=== PATIENT | male | born 1970 | race Caucasian/White ===

== ENCOUNTER 2018-06-11 10:02 | Emergency (ER) | payer BC ==
[2018-06-11] MEDS ORDERED: Labetalol IV* 5 MG/ML 20 ML VIAL IV PUSH ONE (10:24)
[2018-06-11] MEDS ORDERED: niCARdipine CAP* 30 MG PO ONE (10:33)
[2018-06-11 11:08] LABS: ABS Basophils 0.1 10^3/ul (0-0.2); ABS Eosinophils 0.1 10^3/ul (0-0.6); ABS Lymphocytes 1.5 10^3/ul (1.0-4.8); ABS Monocytes 0.4 10^3/ul (0-0.8); ABS Neutrophils 3.5 10^3/ul (1.5-7.7); ABS Nucleated RBC 0 10^3/ul; Eosinophil % 1.6 %; Hematocrit 43 % (42-52); Hemoglobin 14.4 g/dl (14.0-18.0); Lymphocyte % 27.4 %; Mean Corpuscular HGB Conc 33 g/dl (31-36); Mean Corpuscular Hemoglobin 29 pg (27-31); Mean Corpuscular Volume 88 fL (80-94); Mean Platelet Volume 8.4 fL (7.4-10.4); Nucleated Red Blood Cells % 0.1; Platelet Count 240 10^3/ul (150-450); Red Blood Count 4.92 10^6/ul (4.00-5.40); Red Cell Distribution Width 14 % (10.5-15); White Blood Count 5.5 10^3/ul (3.5-10.8)
[2018-06-11 11:19] LABS: INR 0.9 (0.77-1.02)
[2018-06-11 11:29] LABS: Albumin 4.1 g/dL (3.2-5.2); Albumin/Globulin Ratio 1.7 (1-3); BUN/Creatinine Ratio 16.9 (8-20); Calcium 9.2 mg/dL (8.6-10.3); EGFR Non-African American 99.3 (>60); Globulin 2.4 g/dL (2-4); Potassium 4.7 mmol/L (3.5-5.0); Total Bilirubin 0.5 mg/dL (0.2-1.0); Total Protein 6.5 g/dL (6.4-8.9)
[2018-06-11 11:52] LABS: Erythrocyte Sed Rate 5 mm/Hr (0-14)
--- NOTE | 2018-06-11 12:23 | ED ---
Headache - HPI Summary HPI Summary: Patient is a 47-year-old male presenting to the ED with severe acute onset headache with erection 3 over the past 5 days. He states the headache has lasted between 2-6 hours and resolved spontaneously except for the headache from this morning which is lingering. He states the acute onset of the headache was this morning, rated 8/10, severe, sharp in the occipital area and is currently a 2/10. He did not try any medications for relief today, however yesterday had tried Tylenol and ibuprofen without relief. He states he has never had this issue before and denies any history of hypertension. He does have history of migraines with aura, but takes no medications for this. He states this is different than his previous migraines as it is located in the occipital region. He denies any others symptoms including fevers, sweats, chills, visual changes, confusion, cold symptoms, abdominal pain, nausea, vomiting. - History Of Current Complaint Chief Complaint: EDHeadache Stated Complaint: HEADACHE, Time Seen by Provider: 06/11/18 10:14 Hx Obtained From: Patient Onset/Duration: Sudden Onset Initially Headache Was: Initial Pain Scale(0-10)= - 8 Currently Pain Is: Current Pain Scale(0-10)= - 2 Timing: Intermittent, Lasting:, Hours Character: Pressure Location of Headache: Occipital Aggravating Factor: Nothing Allevating Factors: Nothing - Risk Factors SAH Risk Factors: Negative Meningitis Risk Factors: Negative SDH Risk Factors: Negative Temporal Arteritis Risk Factors: Negative - Allergies/Home Medications Allergies/Adverse Reactions: Allergies Allergy/AdvReac Type Severity Reaction Status Date / Time No Known Allergies Allergy Verified 06/11/18 10:04 PMH/Surg Hx/FS Hx/Imm Hx Previously Healthy: Yes Sensory History: Denies: Hx Contacts or Glasses Opthamlomology History: Denies: Hx Contacts or Glasses - Immunization History Hx Pertussis Vaccination: No Immunizations Up to Date: Yes Infectious Disease History: No Infectious Disease History: Denies: Traveled Outside the [place] in Last 30 Days - Family History Known Family History: Negative: Hypertension, Diabetes Family History: No FHx of detached retina - Social History Occupation: Employed Full-time Lives: With Family Alcohol Use: None Hx Substance Use: Yes Substance Use Type: Reports: Marijuana Substance Use Comment - Amount & Last Used: 2-3 times a week Hx Tobacco Use: Yes Smoking Status (MU): Former Smoker Review of Systems Negative: Fever, Chills, Fatigue, Skin Diaphoresis Negative: Epistaxis, Dental Pain Negative: Palpitations, Chest Pain Negative: Shortness Of Breath, Cough Genitourinary: Negative Positive: no symptoms reported, see HPI Negative: Arthralgia, Myalgia Skin: Negative Positive: Headache All Other Systems Reviewed And Are Negative: Yes Physical Exam Triage Information Reviewed: Yes Vital Signs On Initial Exam: Initial Vitals Temp Pulse Resp BP Pulse Ox 96.9 F 80 16 170/115 96 06/11/18 10:04 06/11/18 10:04 06/11/18 10:04 06/11/18 10:04 06/11/18 10:04 Vital Signs Reviewed: Yes Appearance: Positive: Well-Appearing, Well-Nourished Skin: Positive: Warm, Skin Color Reflects Adequate Perfusion Head/Face: Positive: Normal Head/Face Inspection Eyes: Positive: EOMI, CAROLIN, Conjunctiva Clear Neck: Positive: No Lymphadenopathy Respiratory/Lung Sounds: Positive: Clear to Auscultation, Breath Sounds Present Cardiovascular: Positive: RRR, Pulses are Symmetrical in both Upper and Lower Extremities Musculoskeletal: Positive: Normal, Strength/ROM Intact Neurological: Positive: Sensory/Motor Intact, Alert, Oriented to Person Place, Time, CN Intact II-III, Reflexes Intact, Normal Gait, Speech Normal Psychiatric: Positive: Normal AVPU Assessment: Alert - Rosy Coma Scale Best Eye Response: 4 - Spontaneous Best Motor Response: 6 - Obeys Commands Best Verbal Response: 5 - Oriented Coma Scale Total: 15 Diagnostics - Vital Signs Vital Signs Temp Pulse Resp BP Pulse Ox 06/11/18 11:47 78 147/93 96 06/11/18 11:45 71 145/90 96 06/11/18 11:18 138/87 06/11/18 11:00 64 97 06/11/18 10:53 69 158/101 98 06/11/18 10:18 86 196/131 99 06/11/18 10:17 86 100 06/11/18 10:04 96.9 F 80 16 170/115 96 - Laboratory Lab Results: Lab Results 06/11/18 06/11/18 06/11/18 Range/Units 10:54 10:54 10:54 WBC 5.5 (3.5-10.8) 10^3/ul RBC 4.92 (4.00-5.40) 10^6/ul Hgb 14.4 (14.0-18.0) g/dl Hct 43 (42-52) % MCV 88 (80-94) fL MCH 29 (27-31) pg MCHC 33 (31-36) g/dl RDW 14 (10.5-15) % Plt Count 240 (150-450) 10^3/ul MPV 8.4 (7.4-10.4) fL Neut % (Auto) 62.9 % Lymph % (Auto) 27.4 % [place] % (Auto) 7.1 % Eos % (Auto) 1.6 % Baso % (Auto) 1.0 % Absolute Neuts (auto) 3.5 (1.5-7.7) 10^3/ul Absolute Lymphs (auto) 1.5 (1.0-4.8) 10^3/ul Absolute Monos (auto) 0.4 (0-0.8) 10^3/ul Absolute Eos (auto) 0.1 (0-0.6) 10^3/ul Absolute Basos (auto) 0.1 (0-0.2) 10^3/ul Absolute Nucleated RBC 0 10^3/ul Nucleated RBC % 0.1 ESR 5 (0-14) mm/Hr INR (Anticoag Therapy) 0.90 (0.77-1.02) Sodium 138 (135-145) mmol/L Potassium 4.7 (3.5-5.0) mmol/L Chloride 105 (101-111) mmol/L Carbon Dioxide 29 (22-32) mmol/L Anion Gap 4 (2-11) mmol/L BUN 14 (6-24) mg/dL Creatinine 0.83 (0.67-1.17) mg/dL Est GFR ( Amer) 120.2 (>60) Est GFR (Non-Af Amer) 99.3 (>60) BUN/Creatinine Ratio 16.9 (8-20) Glucose 83 (70-100) mg/dL Lactic Acid (0.5-2.0) mmol/L Calcium 9.2 (8.6-10.3) mg/dL Total Bilirubin 0.50 (0.2-1.0) mg/dL AST 17 (13-39) U/L ALT 15 (7-52) U/L Alkaline Phosphatase 62 (34-104) U/L Total Protein 6.5 (6.4-8.9) g/dL Albumin 4.1 (3.2-5.2) g/dL Globulin 2.4 (2-4) g/dL Albumin/Globulin Ratio 1.7 (1-3) //18 Range/Units 10:54 WBC (3.5-10.8) 10^3/ul RBC (4.00-5.40) 10^6/ul Hgb (14.0-18.0) g/dl Hct (42-52) % MCV (80-94) fL MCH (27-31) pg MCHC (31-36) g/dl RDW (10.5-15) % Plt Count (150-450) 10^3/ul MPV (7.4-10.4) fL Neut % (Auto) % Lymph % (Auto) % [place] % (Auto) % Eos % (Auto) % Baso % (Auto) % Absolute Neuts (auto) (1.5-7.7) 10^3/ul Absolute Lymphs (auto) (1.0-4.8) 10^3/ul Absolute Monos (auto) (0-0.8) 10^3/ul Absolute Eos (auto) (0-0.6) 10^3/ul Absolute Basos (auto) (0-0.2) 10^3/ul Absolute Nucleated RBC 10^3/ul Nucleated RBC % ESR (0-14) mm/Hr INR (Anticoag Therapy) (0.77-1.02) Sodium (135-145) mmol/L Potassium (3.5-5.0) mmol/L Chloride (101-111) mmol/L Carbon Dioxide (22-32) mmol/L Anion Gap (2-11) mmol/L BUN (6-24) mg/dL Creatinine (0.67-1.17) mg/dL Est GFR ( Amer) (>60) Est GFR (Non-Af Amer) (>60) BUN/Creatinine Ratio (8-20) Glucose (70-100) mg/dL Lactic Acid 0.7 (0.5-2.0) mmol/L Calcium (8.6-10.3) mg/dL Total Bilirubin (0.2-1.0) mg/dL AST (13-39) U/L ALT (7-52) U/L Alkaline Phosphatase (34-104) U/L Total Protein (6.4-8.9) g/dL Albumin (3.2-5.2) g/dL Globulin (2-4) g/dL Albumin/Globulin Ratio (1-3) Result Diagrams: 06/11/18 10:54 06/11/18 10:54 Lab Statement: Any lab studies that have been ordered have been reviewed, and results considered in the medical decision making process. Headache Course/Dx - Course Course Of Treatment: During this course of treatment, the patient's evaluated for severe acute onset headache 3 over the past 5 days associated with correction. Denies headaches not associated with correction. Worse headache rated an 8/10, acute onset. Currently rated a 2/10 and has not taken any medications for relief today. CT brain obtained which shows no intracranial abnormalities. Labs obtained including an ESR which was WNL. All other labs also WNL. Due to the acute and severe onset of headache specifically associated with correction, this is likely a pretty orgasmic headache which is a bioccipital pressure-like or aching pain during sexual activity. Also this tends to last 1-3 hours but can last up to 24. Patient is comfortable on arrival and physical exam is benign. HTN on arrival at 196/110 which was treated and therapeutic at discharge with Nifedipine. He will follow up with his PCP regarding further workup for HTN as well as acute CASAS. He is given sumitriptan for relief and will also follow up with neurology. - Diagnoses Differential Diagnosis/HQI/PQRI: TIA, Sinus Headache, Subarachnoid Hemorrhage, Temporal Arteritis, Tension Headache, Viral Syndrome Provider Diagnoses: Pre-orgasmic headache Discharge - Sign-Out/Discharge Documenting (check all that apply): Patient Departure - Discharge Plan Condition: Stable Disposition: HOME Prescriptions: SUMAtriptan TAB* [Imitrex TAB*] 50 mg PO SEE INSTRUCTIONS #15 tab Referrals: Clinton Chang MD [Medical Doctor] - Cherri Roblero MD [Primary Care Provider] - Additional Instructions: Please follow up with your PCP regarding your high blood pressure and occipital headaches If you begin to develop a headache, takes sumatriptan at the first onset of the headache for better effect You may also take Tylenol and ibuprofen intermittently If symptoms worsen, he may always return to the ED If symptoms persist, please follow-up with a neurologist, I have given you a referral - Billing Disposition and Condition Condition: STABLE Disposition: Home
[2018-06-11 12:46] VITALS: BP 147/92
== END 2018-06-11 12:35 | disposition home or self-care (01) ==
LOC: ED 10:02
DX: G44.82 Headache associated with sexual activity (principal)
CPT/HCPCS: 36415; 70450; 80053; 83605; 85025; 85610; 85652; 93005; 96374; 99283; A9270-GY

== ENCOUNTER 2019-03-05 19:02 | Emergency (ER) | payer BC ==
--- OUTSIDE RECORDS SUMMARY | 2019-03-05 19:26 | XMS REPORT | Continuity of Care Document ---
:1970 External Reference #:[id number] Author Name Lloyd Terry M.D. (transmitted by agent of provider Valeria Velasquez ) Address [address] [place] [id number] Care Team Providers Name Role Phone Oni Khanna M.D. - Family Medicine Care Team Information Trailer Driver Cherri Roblero MD - Family Care Team Information Trailer Driver [phone] Medicine Problems Description No Information Available Social History Type Date Description Comments Sex Unknown ETOH Use Currently consumes alcohol 2 drinks per day Tobacco Use Start: Unknown End: Patient is a former smoker quit in 1997 Unknown Smoking Status Reviewed: 02/07/19 Patient is a former smoker quit in 1997 Allergies, Adverse Reactions, Alerts Description No Known Drug Allergies Medications Active Medications SIG Qnty Indications Ordering Provider Date Magnesium Oxide 1 by mouth 90tabs G43.109 Pedro Velazquez, 12/27/2018 400mg every day M.D. Tablets Aspir-Low 1 by mouth Unknown 81mg Tablets DR every day Immunizations Description No Information Available Vital Signs Date Vital Result Comment 02/07/2019 10:13am Height 70 inches 5'10" Weight 201.38 lb Heart Rate 60 /min BP Systolic Sitting 122 mmHg BP Diastolic Sitting 80 mmHg Respiratory Rate 14 /min Body Temperature 97.8 F BMI (Body Mass Index) 28.9 kg/m2 12/27/2018 2:21pm Height 70 inches 5'10" Weight 202.50 lb Heart Rate 62 /min BP Systolic 148 mmHg BP Diastolic 82 mmHg BMI (Body Mass Index) 29.1 kg/m2 Results Description No Information Available Procedures Description No Information Available Medical Devices Description No Information Available Encounters Type Date Location Provider Dx Diagnosis Office Visit 12/27/2018 [facility] Shelby H34.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 eye 12/27/2018 G43.109 Migraine with aura, not intractable, Pedro Velazquez M.D. without status migraino 12/27/2018 G44.53 Primary thunderclap headache Pedro Velazquez M.D. Plan of Treatment Future Appointment(s):03/14/2019 9:30 am - Lloyd Terry M.D. at [facility]/27/2019 - Lloyd Terry M.D.R76.12 Nonspec reaction to gamma intrfrn respns w/o actv tubrclosisFollow up:1 month Functional Status Description No Information Available Mental Status Description No Information Available Referrals Description No Information Available
[2019-03-05] MEDS ORDERED: Bupivacaine 0.25% W/EPI* 50 ML VIAL INJ ONE (21:47)
--- NOTE | 2019-03-05 21:53 | ED ---
Upper Extremity Pain - HPI Summary HPI Summary: The patient is a 48 y/o M presenting to [facility] with a chief complaint of pain and bleeding from the right third finger with trauma around 1400 today. He reports that the finger was smashed between two bowling balls and has bleeding since. He went to [facility], where x-rays where taken. He denies any paresthesias in the finger. Currently, his symptoms are rated 7/10 in severity. Movement aggravates the pain, and rest alleviates it. No PMHx. Former smoker, occasional EtOH, marijuana use. Medications reviewed. Allergies noted. - History of Current Complaint Chief Complaint: EDExtremityUpper Stated Complaint: POS BROKEN R MIDDLE FINGER PER PT Time Seen by Provider: 03/05/19 21:43 Hx Obtained From: Patient Mechanism Of Injury: Blunt Trauma - squished between two bowling balls Onset/Duration: Started Hours Ago - 1400 today, Traumatic, Still Present Timing: Lasting Hours Severity Initially: Moderate Severity Currently: Moderate Pain Location: Finger - right third Character: Sharp Aggravating Factor(s): Movement Alleviating Factor(s): Rest Associated Signs & Symptoms: Positive: Other - bleeding with laceration on right middle finger. Negative: Numbness/Tingling - Allergies/Home Medications Allergies/Adverse Reactions: Allergies Allergy/AdvReac Type Severity Reaction Status Date / Time No Known Allergies Allergy Verified 03/05/19 19:18 Home Medications: Home Medications Amoxicillin PO (*) [Amoxicillin 875 MG (*)] 875 mg PO BID 03/05/19 [History Confirmed 03/05/19] RiFAMPin CAP* 600 mg PO DAILY 03/05/19 [History Confirmed 03/05/19] PMH/Surg Hx/FS Hx/Imm Hx Endocrine/Hematology History: Denies: Hx Diabetes Cardiovascular History: Denies: Hx Hypertension History: Denies: Hx Renal Disease Sensory History: Denies: Hx Contacts or Glasses Opthamlomology History: Denies: Hx Contacts or Glasses - Surgical History Surgical History: None Surgery Procedure, Year, and Place: none Infectious Disease History: Yes Infectious Disease History: Denies: Traveled Outside the [place] in Last 30 Days - Family History Known Family History: Negative: Hypertension, Diabetes Family History: No FHx of detached retina - Social History Alcohol Use: Occasionally Hx Substance Use: Yes Substance Use Type: Reports: Marijuana Substance Use Comment - Amount & Last Used: 2-3 times a week Hx Tobacco Use: Yes Smoking Status (MU): Former Smoker Review of Systems Positive: Other - pain in the right middle finger Positive: Other - bleeding from right middle finger Negative: Paresthesia - in right middle finger All Other Systems Reviewed And Are Negative: Yes Physical Exam - Summary Physical Exam Summary: Appearance: Well-appearing, Well-nourished, lying in bed comfortable Skin: Right middle finger has fusiform swelling of the distal phalanx extending to the middle with associated ecchymosis and what appears to be a superficial laceration on the volar surface over the DIP joint. There is no subungual hematoma, no other breaks in the skin, warm, dry, no obvious rash Eyes: sclera anicteric, no conjunctival pallor ENT: mucous membranes moist Neck: deferred Respiratory: No signs of respiratory distress Cardiovascular: Appears well perfused, pulses are nml Abdomen: deferred Musculoskeletal: Moving all 4 extremities without obvious discomfort Neurological: Awake and alert, mentation is normal, speech is fluent and appropriate Psychiatric: affect is normal, does not appear anxious or depressed Triage Information Reviewed: Yes Vital Signs On Initial Exam: Initial Vitals Temp Pulse Resp BP Pulse Ox 99.5 F 88 20 186/119 98 03/05/19 19:17 03/05/19 19:17 03/05/19 19:17 03/05/19 19:17 03/05/19 19:17 Vital Signs Reviewed: Yes Procedures - Splinting Right 3rd Digit Location: right middle finger Pre-Made Type: aluminum foam Splint: volar Pre-Proc Neuro Vasc Exam: normal Post-Proc Neuro Vasc Exam: unchanged from pre-exam Splint Applied by Provider: Robson Cardenas - Digital block performed with bupivacaine 0.25% with epinephrine, aluminum foam finger splint placed, covered wound on volar surface with xeroform guaze. Diagnostics - Vital Signs Vital Signs Temp Pulse Resp BP Pulse Ox 03/05/19 19:17 99.5 F 88 20 186/119 98 - Laboratory Lab Statement: Any lab studies that have been ordered have been reviewed, and results considered in the medical decision making process. - Radiology Right Finger XR Radiology Interpretation Completed By: Radiologist Summary of Radiographic Findings: Comminuted fracture of distal phalanx that is not displaced. ED physician has reviewed this imaging report. (Taken at [facility]) Re-Evaluation - Re-Evaluation First Eval Re-Evaluation Time: 22:45 Comment: We discussed plan for discharge following splinting procedure. Course/Dx - Course Course Of Treatment: Pt is a 48 y/o M with cc of laceration and possible fracture of the right third finger occurring at 1400 today after smashing the finger between two bowling balls. Upon physical exam, the pt exhibits right middle finger has fusiform swelling of the distal phalanx extending to the middle with associated ecchymosis and what appears to be a superficial laceration on the volar surface on the second DIP space without subungal hematoma or other breaks in the skin. Imaging disks retrieved from [facility]. Right finger x-ray is positive for comminuted fracture of distal phalanx that is not displaced. In the ED course, the pt was administered Percocet for pain and Keflex for infection treatment. Digital block performed with bupivacaine 0.25% with epinephrine, aluminum foam finger splint placed, covered wound on volar surface with xeroform gauze. We discussed plan for discharge with rx for Keflex and Percocet. He understands and agrees with this plan. Dx is fracture of the distal phalanx of the right middle finger. - Diagnoses Provider Diagnoses: Fracture of distal phalanx of right middle finger Discharge ED - Sign-Out/Discharge Documenting (check all that apply): Patient Departure - Patient will be discharged home. Patient Received Moderate/Deep Sedation with Procedure: No - Discharge Plan Condition: Good Disposition: HOME Prescriptions: Cephalexin CAP* [Keflex CAP*] 500 mg PO QID #20 cap oxyCODONE/Acetamin 5/325 MG* [Percocet 5/325 TAB*] 2 tab PO Q4H PRN #15 tab MDD 6 PRN Reason: Pain - Severe Patient Education Materials: Finger Fracture (ED) Referrals: Shamika Farley MD [Medical Doctor] - 1 Day Additional Instructions: Please call Dr. Farley's office in the morning. They will have access to your xrays. I would like them to check on your injury sometime in the next day or two. In the meantime take the prescribed antibiotics and pain medications. - Billing Disposition and Condition Condition: GOOD Disposition: Home - Attestation Statements Document Initiated by Scribe: Yes Documenting Scribe: Cristina Spear Provider For Whom Kristin is Documenting (Include Credential): Dr. Robson Cardenas MD Scribe Attestation: I, aida Ricksibed for Dr. Robson Cardenas MD on 03/06/19 at 1830. Scribe Documentation Reviewed: Yes Provider Attestation: The documentation as recorded by the Cristina swain accurately reflects the service I personally performed and the decisions made by me, Dr. Robson Cardenas MD Status of Scribe Document: Viewed
[2019-03-05] MEDS ORDERED: Bupivacaine 0.25% W/EPI* 10 ML SDV INJ ONE (22:00)
[2019-03-05] MEDS ORDERED: Cephalexin CAP* 500 MG PO ONE (22:59)
[2019-03-05] MEDS ORDERED: oxyCODONE/Acetamin 5/325 MG* TAB PO ONE (23:00)
[2019-03-05 23:10] VITALS: BP 158/107
== END 2019-03-05 23:09 | disposition home or self-care (01) ==
LOC: ED 19:02
DX: S62.632A Displaced fracture of distal phalanx of right middle finger, initial encounter for closed fracture (principal); M79.644 Pain in right finger(s); Z87.891 Personal history of nicotine dependence; W23.0XXA Caught, crushed, jammed, or pinched between moving objects, initial encounter; Y92.9 Unspecified place or not applicable
CPT/HCPCS: 96374; 99282; A9270-GY

== ENCOUNTER 2020-04-03 20:51 | Observation (INO) ==
[2020-04-03] MEDS ORDERED: oxyCODONE/Acetamin 5/325 mg TAB PO ONE (21:43)
[2020-04-03] MEDS ORDERED: ceFAZolin 1 GM ADVAN 1 GM in NS 0.9% 50 ML 50 ML IVPB ONE (22:32)
[2020-04-03] MEDS ORDERED: diPHENhydraMINE 25 mg TAB PO PRN (23:07)
[2020-04-03] MEDS ORDERED: Ondansetron 4 mg VIAL 2 MG/ML 2 ml VIAL IV PRN (23:07)
[2020-04-03] MEDS ORDERED: Morphine 4 MG/ML VIAL (1 ml) IV ONE (23:22)
[2020-04-04] MEDS: oxyCODONE/Acetamin 5/325 mg TAB PO PRN ×2 (01:23→22:20)
[2020-04-04] MEDS: NS 0.9% 1000 ml BAG 1,000 ML IV SCH ×3 (01:24→22:25)
[2020-04-04] MEDS: ceFAZolin 1 GM ADVAN 1 GM in NS 0.9% 50 ML 50 ML IVPB SCH ×3 (06:48→22:25)
[2020-04-04] MEDS ORDERED: Influenza VAC *QUAD* 2020-21* 0.5 ML SYRINGE IM ONE ×2 (07:55→09:00)
[2020-04-04] MEDS: Morphine 10 MG/ML VIAL (1 ml) IV PRN ×2 (08:03→13:45)
[2020-04-04 11:22] LABS: ABS Lymphocytes 1.3 10^3/ul (1.0-4.8); ABS Monocytes 0.6 10^3/ul (0-0.8); ABS Neutrophils 5.3 10^3/ul (1.5-7.7); Eosinophil % 0.5 %; Hematocrit 41 % (42-52); Lymphocyte % 17.5 %; Mean Corpuscular HGB Conc 34 g/dL (31-36); Mean Corpuscular Hemoglobin 30 pg (27-31); Mean Corpuscular Volume 88 fL (80-94); Mean Platelet Volume 8.4 fL (7.4-10.4); Platelet Count 244 10^3/uL (150-450); Red Blood Count 4.66 10^6 /uL (4.18-5.48); Red Cell Distribution Width 14 % (10-15); White Blood Count 7.3 10^3/uL (3.5-10.8)
[2020-04-04 11:27] LABS: INR 1.02 (0.82-1.09)
[2020-04-04 11:42] LABS: Calcium 8.7 mg/dL (8.6-10.3); EGFR African American 124.3 (>60); EGFR Non-African American 102.7 (>60)
[2020-04-04] MEDS ORDERED: ceFAZolin 2 GM PREMIX 2 GM/50 ML BAG ONE (18:19)
[2020-04-04] MEDS ORDERED: Midazolam 2 mg/2 ml VIAL 1 mg/ml 2 ml VIAL (2 mg) ONE (18:28)
[2020-04-04] MEDS ORDERED: fentaNYL 100 mcg/2 ml 50 MCG/ML VIAL ONE ×2 (18:28→18:58)
[2020-04-04] MEDS ORDERED: Propofol 10 MG/ML 20 ML BTL ONE (18:29)
[2020-04-04] MEDS ORDERED: Bupivacaine 0.5% SDV PF 30ML VIAL ONE (18:40)
[2020-04-04] MEDS ORDERED: HYDROmorphone 1 MG/1 ML SYRINGE ONE (19:07)
[2020-04-04] MEDS ORDERED: Naloxone 0.4 mg VIAL 0.4 mg/ml 1 ml VIAL IV PRN (19:17)
[2020-04-04] MEDS ORDERED: HYDROmorphone 1 MG/1 ML SYRINGE IV PRN (19:17)
[2020-04-04] MEDS ORDERED: Ondansetron 4 mg VIAL 2 MG/ML 2 ml VIAL IV PRN (19:17)
[2020-04-04] MEDS ORDERED: fentaNYL 100 mcg/2 ml 50 MCG/ML VIAL IV PRN (19:17)
[2020-04-04] MEDS ORDERED: Dexamethasone IV 4 MG/ML VIAL 1 ml VIAL ONE (19:30)
[2020-04-05] MEDS: ceFAZolin 1 GM ADVAN 1 GM in NS 0.9% 50 ML 50 ML IVPB SCH ×2 (05:37→13:24)
[2020-04-05] MEDS: oxyCODONE/Acetamin 5/325 mg TAB PO PRN ×2 (07:40→11:56)
[2020-04-05 11:13] VITALS: BP 142/81
== END 2020-04-05 14:25 | disposition home or self-care (01) ==
LOC: ED 20:51 → SSU 20:51
PROVIDERS: ADMIT Orthopaedic Surgery; ATTEND Orthopaedic Surgery